=== PATIENT | female | born 1990 ===

== ENCOUNTER 2024-06-21 13:55 | Outpatient (CLI) | payer OTHER | END 2024-06-21 13:56 | disposition home or self-care (01) | LOC: PRENATAL 13:55 | PROVIDERS: ATTEND Obstetrics & Gynecology Maternal & Fetal Medicine | DX: O44.00 Complete placenta previa NOS or without hemorrhage, unspecified trimester (principal); Z3A.21 21 weeks gestation of pregnancy ==

== ENCOUNTER 2024-10-04 08:41 | Outpatient (CLI) | payer OTHER | END 2024-10-04 08:42 | disposition home or self-care (01) | LOC: PRENATAL 08:41 | PROVIDERS: ATTEND Obstetrics & Gynecology Maternal & Fetal Medicine | DX: O26.849 Uterine size-date discrepancy, unspecified trimester (principal); O36.8199 Decreased fetal movements, unspecified trimester, other fetus; Z3A.36 36 weeks gestation of pregnancy ==

== ENCOUNTER 2024-11-01 05:53 | Inpatient (IN) | payer OTHER ==
[2024-11-01] VITALS (7 sets, daily range): BP systolic 113–139; BP diastolic 54–89
[~2024-11-01] VITALS: Ht 165.1 cm; Wt 88.5 kg
[2024-11-01] MEDS ORDERED: OBSTETRIX ONE1 EAC1 PO (06:57)
[2024-11-01 07:16] LABS: BASO % 0.3 % (0.1-1.2); EOS # 0.10 (0.04-0.54); EOS % 0.8 % (0.7-7.0); LYMPH # 2.12 (1.18-3.74); LYMPH % 17.7 % (19.3-53.1); MEAN PLATELET VOLUME 10.70 fl (9.4-12.4); MONO # 0.91 (0.24-0.82); MONO % 7.6 % (4.7-12.5); NEUT # 8.70 (1.56-6.13); NEUT % 72.7 % (34.0-71.1); RED CELL DISTRIBUTION WIDTH 12.6 % (11.6-14.4)
[2024-11-01 07:21] LABS: URINE BILIRRUBIN NEGATIVE (NEGATIVE); URINE BLOOD NEGATIVE; URINE GLUCOSE NEGATIVE (NEGATIVE); URINE KETONE NEGATIVE (NEGATIVE); URINE LEUKOCYTE NEGATIVE; URINE NITRATE NEGATIVE; URINE PROTEIN NEGATIVE (NEGATIVE); URINE UROBILINOGEN 0.2 E.U./dl
[2024-11-01 07:23] LABS: URINE APPEARANCE CLEAR; URINE BACTERIA 1745.9 uL (0.0-1933); URINE COLOR YELLOW; URINE EPITHELIAL CELLS 23.6 uL (0.0-38.8); URINE RBC 3.6 uL (0.0-20.8); URINE WBC 17.2 uL (0.0-23.2)
[2024-11-01 07:25] LABS: URINE CAST 0.29 uL (0.0-1.40)
[2024-11-01 07:44] LABS: INR 0.95
[2024-11-01] MEDS ORDERED: OXYTOCIN 500 ML IV SCH (07:45)
[2024-11-01 08:05] LABS: ALT/SGPT 22.0 U/L (12-78); AST/SGOT 17.0 U/L (15-37); BILIRUBIN TOTAL 1.2 mg/dL (0.3-1.2); BUN CREA RATIO 8.0 (7.0-25.0); CREATININE SERUM 0.63 mg/dL (0.55-1.02); GFR 109.51; GLOBULINA 3.1 G/DL (2.4-3.5); GLUCOSE FASTING 75.0 mg/dL (65-100); OSMOLALITY SERUM 275.0 MOSM/KG (275-295)
[2024-11-01] MEDS ORDERED: OXYTOCIN 1,000 ML IV SCH ×2 (11:15→13:00)
[2024-11-01] MEDS ORDERED: CHLORHEXIDINE GLUCONATE 120 ML BOTTLE TOP ONE (11:15)
[2024-11-01] MEDS ORDERED: LIDOCAINE HCL 1% 10ML VIAL IJ ONE (11:15)
[2024-11-01] MEDS ORDERED: ERYTHROMYCIN BASE OPHT 1GM EACH TUBE OP ONE (11:15)
[2024-11-01] MEDS ORDERED: CHLORHEXIDINE GLUCONATE 120 ML BOTTLE TP SCH (13:00)
[2024-11-02] VITALS: BP 128/87
[2024-11-02 08:32] VITALS: BP 129/85
[2024-11-02 16:38] VITALS: BP 140/80
[2024-11-03] VITALS: BP 124/80
[2024-11-03 08:54] VITALS: BP 140/89
== END 2024-11-03 16:54 | disposition home or self-care (01) | DRG 807 ==
LOC: OB/GYN 05:53 → LDR 05:53 → OB/GYN 11:08
PROVIDERS: ADMIT Obstetrics & Gynecology; ATTEND Obstetrics & Gynecology
PROC: 10E0XZZ Delivery of Products of Conception, External Approach (ICD-10-PCS; principal; 2024-11-01)
PROC: 0KQM0ZZ Repair Perineum Muscle, Open Approach (ICD-10-PCS; 2024-11-01)
PROC: 4A1HXCZ Monitoring of Products of Conception, Cardiac Rate, External Approach (ICD-10-PCS; 2024-11-01)
DX: O70.1 Second degree perineal laceration during delivery (principal); Z37.0 Single live birth; Z3A.39 39 weeks gestation of pregnancy